=== PATIENT | female | born 1995 | race Caucasian/White ===

== ENCOUNTER 2017-09-09 19:57 | Emergency (ER) | payer BC ==
[2017-09-09] MEDS ORDERED: Famotidine TAB* 20 MG PO ONE (21:33)
[2017-09-09] MEDS ORDERED: predniSONE TAB* 20 MG PO ONE (21:33)
--- NOTE | 2017-09-09 22:40 | ED ---
Kyle De Jesus Thomas, scribed for Rai Florez MD on 09/09/17 at 2132 . 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 Patient complains of throat itching, lip swelling (mostly relieved by arrival), and dizziness. The patient has treated the allergic reaction with Benadryl 50 mg prior to arrival. Patient denies rash. - History of Current Complaint Chief Complaint: EDAllergicReaction Time Seen by Provider: 09/09/17 21:27 Hx Obtained From: Patient Onset/Duration: Started hours ago - earlier tonight, Still Present Timing: Constant Severity Currently: Mild Pain Intensity: 0 Pain Scale Used: 0-10 Numeric Location: Discrete @ - lip swelling, Aggravating Factor(s): Nothing Alleviating Factor(s): Other - Benadryl Associated Signs And Symptoms: Positive: Other: - throat itching, lip swelling, dizziness - Allergies/Home Medications Allergies/Adverse Reactions: Allergies Allergy/AdvReac Type Severity Reaction Status Date / Time Risperidone [From Risperdal] AdvReac Severe PSYCOSIS Verified 07/24/16 15:37 TREE NUTS Allergy Severe Anaphylatic Uncoded 03/27/14 16:30 Shock PMH/Surg Hx/FS Hx/Imm Hx Previously Healthy: No Endocrine/Hematology History: Denies: Hx Anticoagulant Therapy, Hx Diabetes, Hx Thyroid Disease Comment Only: 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 Cardiovascular History: Denies: Hx Hypertension, Hx Pacemaker/ICD Respiratory History: Reports: Hx Asthma - [employer]YS[employer] INH[employer]ER Denies: Hx Chronic Obstructive Pulmonary Disease (COPD) History: Denies: Hx Renal Disease Sensory History: Denies: Hx Contacts or Glasses, Hx Hearing Aid Opthamlomology History: Denies: Hx Contacts or Glasses Neurological History: Reports: Hx Headaches, Hx Migraine - STATES HEADACHE FOR 6 MONTHS Denies: Hx Dementia, Hx Seizures Psychiatric History: Reports: Hx Anxiety - ANOREXIA, Hx Eating Disorder - ANOREXIC FOR 3 YEARS, Hx Depression, Hx Suicide Attempt Denies: Hx of Violent Episodes Against Others, Hx Substance Abuse - Surgical History Hx Anesthesia Reactions: No Infectious Disease History: No Infectious Disease History: Denies: Hx Hepatitis, Hx Human Immunodeficiency Virus (HIV), Traveled Outside the [place] in Last 30 Days - Family History Known Family History: Positive: Hypertension, Diabetes - Social History Alcohol Use: None Hx Substance Use: No Substance Use Type: Reports: None Hx Tobacco Use: No Smoking Status (MU): Never Smoked Tobacco Review of Systems Negative: Fever Positive: Other - Throat itching, lip swelling Neurological: Other - Dizziness All Other Systems Reviewed And Are Negative: Yes Physical Exam - Summary Physical Exam Summary: VITAL SIGNS: Reviewed. GENERAL: Patient is a well-developed and nourished female who is lying comfortable in the stretcher. Patient is not in any acute respiratory distress. HEAD AND FACE: No signs of trauma. No ecchymosis, hematomas or skull depressions. No sinus tenderness. She does have redness over her face. EYES: PERRLA, EOMI x 2, No injected conjunctiva, no nystagmus. EARS: Hearing grossly intact. Ear canals and tympanic membranes are within normal limits. MOUTH: The patient has mild lip swelling. Her oropharynx and uvula is normal. NECK: Supple, trachea is midline, no adenopathy, no JVD, no carotid bruit, no c- spine tenderness, neck with full ROM. CHEST: Symmetric, no tenderness at palpation LUNGS: Clear to auscultation bilaterally. No wheezing or crackles. CVS: Regular rate and rhythm, S1 and S2 present, no murmurs or gallops appreciated. ABDOMEN: Soft, non-tender. No signs of distention. No rebound no guarding, and no masses palpated. Bowel sounds are normal. EXTREMITIES: FROM in all major joints, no edema, no cyanosis or clubbing. NEURO: Alert and oriented x 3. No acute neurological deficits. Speech is normal and follows commands. SKIN: Dry and warm Triage Information Reviewed: Yes Vital Signs On Initial Exam: Initial Vitals Temp Pulse Resp BP Pulse Ox 97.2 F 93 18 165/90 99 09/09/17 19:59 09/09/17 19:59 09/09/17 19:59 09/09/17 19:59 09/09/17 19:59 Vital Signs Reviewed: Yes Diagnostics - Vital Signs Vital Signs Temp Pulse Resp BP Pulse Ox 09/09/17 19:59 97.2 F 93 18 165/90 99 - Laboratory Lab Statement: Any lab studies that have been ordered have been reviewed, and results considered in the medical decision making process. 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 Patient complains of throat itching, lip swelling (mostly relieved by arrival), and dizziness. The patient has treated the allergic reaction with Benadryl 50 mg prior to arrival. Patient denies rash. In the ED course the patient was given Pepcid and prednisone. The patient was observed for an hour and a half in the ED. The patient is diagnosed with allergic reaction. The patient is instructed to follow up with primary care. The patient is prescribed prednisone. - Diagnoses Provider Diagnoses: Allergic reaction Discharge - Discharge Plan Condition: Stable Disposition: HOME Prescriptions: predniSONE TAB* [Deltasone TAB*] 40 mg PO DAILY #10 tab Patient Education Materials: General Allergic Reaction (ED) Referrals: Felisa Orlando MD [Primary Care Provider] - 3 Days Additional Instructions: Follow up with your primary care physician in three days. Return to the emergency department for any new or worsening symptoms. The documentation as recorded by the Kyle castillo Thomas accurately reflects the service I personally performed and the decisions made by , Rai Florez MD.
[2017-09-09 22:41] VITALS: BP 128/53
== END 2017-09-09 22:43 | disposition home or self-care (01) ==
LOC: ED 19:57
DX: T78.40XA Allergy, unspecified, initial encounter (principal); J45.909 Unspecified asthma, uncomplicated; F41.9 Anxiety disorder, unspecified
CPT/HCPCS: 99282; A9270-GY; J7512

== ENCOUNTER 2019-09-12 13:27 | Emergency (ER) | payer BC ==
[2019-09-12 16:18] LABS: ABS Basophils 0.1 10^3/ul (0-0.2); ABS Eosinophils 0.4 10^3/ul (0-0.6); ABS Lymphocytes 3.3 10^3/ul (1.0-4.8); ABS Monocytes 0.7 10^3/ul (0-0.8); ABS Neutrophils 8.2 10^3/ul (1.5-7.7); Eosinophil % 3.5 %; Hematocrit 41 % (35-47); Hemoglobin 13.8 g/dL (12.0-16.0); Lymphocyte % 26.2 %; Mean Corpuscular HGB Conc 34 g/dL (31-36); Mean Corpuscular Hemoglobin 33 pg (27-31); Mean Corpuscular Volume 97 fL (80-97); Mean Platelet Volume 8.3 fL (7.4-10.4); Nucleated Red Blood Cells % 0.1; Platelet Count 382 10^3/uL (150-450); Red Blood Count 4.22 10^6 /uL (3.70-4.87); Red Cell Distribution Width 12 % (10-15); White Blood Count 12.7 10^3/uL (3.5-10.8)
--- NOTE | 2019-09-12 16:25 | ED ---
Psychiatric Complaint - HPI Summary HPI Summary: This patient is a 24 year old female presenting to [facility] with a chief complaint of SI. The patient states she has been struggling for the last couple of weeks and has had thoughts since 2 days ago. She states she had a plan and wanted to act on it. She states she has a prior attempt to overdose on Tylenol. She has prior admission for psychiatric problems, but not for the overdose. She currently takes [place] and has been taking it as prescribed. - History Of Current Complaint Chief Complaint: EDSuicidal Time Seen by Provider: 09/12/19 15:35 Hx Obtained From: Patient Onset/Duration: Lasting Days Character: Depressed Aggravating Factor(s): Recent Stress - Allergies/Home Medications Allergies/Adverse Reactions: Allergies Allergy/AdvReac Type Severity Reaction Status Date / Time Risperidone AdvReac Severe PSYCOSIS Verified 09/12/19 13:33 [From Risperdal] TREE NUTS Allergy Severe Anaphylatic Uncoded 09/12/19 13:33 Shock Home Medications: Home Medications [place] Carbonate TAB* 300 mg PO BEDTIME 09/12/19 [History Confirmed 09/12/19] [place] Carbonate TAB* 600 mg PO BEDTIME 09/12/19 [History Confirmed 09/12/19] Methylphenidate HCl [Methylphenidate ER] 27 mg PO QAM 09/12/19 [History Confirmed 09/12/19] cloNIDine TAB* [Catapres 0.1 MG TAB*] 0.2 mg PO DAILY 09/12/19 [History Confirmed 09/12/19] clonazePAM TAB(*) [KlonoPIN TAB(*)] 0.5 mg PO TID PRN 09/12/19 [History Confirmed 09/12/19] l-Norgest/E.estradiol-E.estrad [Simpesse 0.15-0.03-0.01 mg Tab] 1 tab PO DAILY 09/12/19 [History Confirmed 09/12/19] metFORMIN* [Glucophage 500 MG TAB *] 250 mg PO DAILY 09/12/19 [History Confirmed 09/12/19] PMH/Surg Hx/FS Hx/Imm Hx Endocrine/Hematology History: Denies: Hx Anticoagulant Therapy, Hx Diabetes, Hx Thyroid Disease Comment Only: 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 Cardiovascular History: Denies: Hx Hypertension, Hx Pacemaker/ICD Respiratory History: Reports: Hx Asthma - [employer] INHALLER Denies: Hx Chronic Obstructive Pulmonary Disease (COPD) History: Denies: Hx Renal Disease Sensory History: Denies: Hx Contacts or Glasses, Hx Hearing Aid Opthamlomology History: Denies: Hx Contacts or Glasses Neurological History: Reports: Hx Headaches, Hx Migraine - STATES HEADACHE FOR 6 MONTHS Denies: Hx Dementia, Hx Seizures Psychiatric History: Reports: Hx Anxiety - ANOREXIA, Hx Eating Disorder - ANOREXIC FOR 3 YEARS, Hx Depression, Hx Suicide Attempt Denies: Hx of Violent Episodes Against Others, Hx Substance Abuse - Surgical History Hx Anesthesia Reactions: No Infectious Disease History: No Infectious Disease History: Denies: Hx Hepatitis, Hx Human Immunodeficiency Virus (HIV), Traveled Outside the [place] in Last 30 Days - Family History Known Family History: Positive: Hypertension, Diabetes - Social History Alcohol Use: None Hx Substance Use: No Substance Use Type: Reports: None Hx Tobacco Use: No Smoking Status (MU): Never Smoked Tobacco Review of Systems Negative: Fever, Chills Negative: Erythema Negative: Sore Throat Negative: Chest Pain Negative: Shortness Of Breath, Cough Negative: Abdominal Pain, Vomiting, Nausea Negative: dysuria, hematuria Negative: Myalgia Negative: Rash Neurological: Other - Neg: Dizziness Positive: Depressed - SI All Other Systems Reviewed And Are Negative: No Physical Exam Vital Signs On Initial Exam: Initial Vitals Temp Pulse Resp BP Pulse Ox 97.1 F 75 16 150/73 97 09/12/19 13:29 09/12/19 13:29 09/12/19 13:29 09/12/19 13:29 09/12/19 13:29 Procedures - Sedation Patient Received Moderate/Deep Sedation with Procedure: No Diagnostics - Vital Signs Vital Signs Temp Pulse Resp BP Pulse Ox 09/12/19 13:29 97.1 F 75 16 150/73 97 - Laboratory Lab Results: Lab Results 09/12/19 Range/Units 15:47 WBC 12.7 H (3.5-10.8) 10^3/uL RBC 4.22 (3.70-4.87) 10^6 /uL Hgb 13.8 (12.0-16.0) g/dL Hct 41 (35-47) % MCV 97 (80-97) fL MCH 33 H (27-31) pg MCHC 34 (31-36) g/dL RDW 12 (10-15) % Plt Count 382 (150-450) 10^3/uL MPV 8.3 (7.4-10.4) fL Neut % (Auto) 64.5 % Lymph % (Auto) 26.2 % [place] % (Auto) 5.3 % Eos % (Auto) 3.5 % Baso % (Auto) 0.5 % Absolute Neuts (auto) 8.2 H (1.5-7.7) 10^3/ul Absolute Lymphs (auto) 3.3 (1.0-4.8) 10^3/ul Absolute Monos (auto) 0.7 (0-0.8) 10^3/ul Absolute Eos (auto) 0.4 (0-0.6) 10^3/ul Absolute Basos (auto) 0.1 (0-0.2) 10^3/ul Absolute Nucleated RBC 0.0 10^3/ul Nucleated RBC % 0.1 Result Diagrams: 09/12/19 15:47 09/12/19 15:47 Lab Statement: Any lab studies that have been ordered have been reviewed, and results considered in the medical decision making process. Course/Dx - Course Course Of Treatment: This patient is a 24 year old female presenting to [facility] with a chief complaint of SI. Patient will be signed out to Dr. Bynum pending E at shift change 1900. - Differential Dx/Clinical Impression Provider Diagnosis: Suicidal ideation Discharge ED - Sign-Out/Discharge Documenting (check all that apply): Sign-Out Patient Signing out patient TO: Parmjit Bynum - At shift change 1900 pending E. - Discharge Plan Referrals: Alexey Naik MD [Primary Care Provider] - - Attestation Statements Document Initiated by Scribe: Yes Documenting Scribe: Lobito Nicole Provider For Whom Robertibe is Documenting (Include Credential): Omi Marshall MD Scribe Attestation: ILobito, scribed for Omi Marshall MD on 09/12/19 at 1918. Status of Scribe Document: Ready
[2019-09-12 16:30] LABS: Urine Appearance Cloudy; Urine Bilirubin Negative (Negative); Urine Blood Negative (Negative); Urine Color Amber; Urine Glucose Negative (Negative); Urine Ketones Negative (Negative); Urine Nitrite Negative (Negative); Urine Protein Negative (Negative); Urine Specific Gravity 1.015 (1.010-1.030); Urine Urobilinogen Negative (Negative)
[2019-09-12 17:05] LABS: TSH (Thyroid Stimulating Horm) 1.83 mcIU/mL (0.34-5.60)
[2019-09-12 17:20] LABS: ALT 12 U/L (7-52); AST 17 U/L (13-39); Albumin 4.2 g/dL (3.2-5.2); Albumin/Globulin Ratio 1.6 (1-3); Alkaline Phosphatase 58 U/L (34-104); Anion Gap 9 mmol/L (2-11); BUN/Creatinine Ratio 15.8 (8-20); Blood Urea Nitrogen 12 mg/dL (6-24); CO2 Carbon Dioxide 22 mmol/L (22-32); Calcium 9.9 mg/dL (8.6-10.3); Chloride 109 mmol/L (101-111); EGFR African American 115.1 (>60); EGFR Non-African American 95.2 (>60); Globulin 2.7 g/dL (2-4); Glucose 88 mg/dL (70-100); Sodium 140 mmol/L (135-145); Total Protein 6.9 g/dL (6.4-8.9)
[2019-09-12 17:24] LABS: Urine Benzodiazepine Screen None Detected (None Detect); Urine Opiates Screen None Detected (None Detect)
[2019-09-12 17:25] LABS: Acetaminophen < 15 mcg/mL; Salicylate < 2.50 mg/dL (<30)
[2019-09-12 17:41] LABS: Alcohol < 10 mg/dL (<10); Lithium 0.44 mmol/L (0.6-1.2)
--- NOTE | 2019-09-12 19:11 | ED ---
Progress - Progress Note Progress Note: Patient is received as a sign out from Dr. Marshall to Dr. Bynum at 1899 shift change pending MHE of this mental health patient. 2049 - Mental health etcher photoengraving Mark reports that the patient's case was reviewed by Dr. Mclaughlin, patient discharged to home with Dx of depressive disorder. Course/Dx - Course Course Of Treatment: Patient is received as a sign out from Dr. Marshall to Dr. Bynum at 189909/12/19 shift change pending MHE of this mental health patient. 2049 - Mental health etcher photoengraving Mark reports that the patient's case was reviewed by Dr. Mclaughlin, patient discharged to home with Dx of depressive mood disorder. - Diagnoses Provider Diagnoses: Depressive disorder - Provider Notifications Discussed Care Of Patient With: Christian Mclaughlin Time Discussed With Above Provider: 20:50 Instructed by Provider To: Other - 2049 - Mental health etcher photoengraving Mark reports that the patient's case was reviewed by Dr. Mclaughlin, patient discharged to home with Dx of depressive disorder. Discharge ED - Sign-Out/Discharge Documenting (check all that apply): Patient Departure - discharge, Receiving Sign-Out Receiving patient FROM: Omi Marshall - Discharge Plan Condition: Stable Disposition: HOME Patient Education Materials: Depression (ED) Referrals: Alexey Naik MD [Primary Care Provider] - Additional Instructions: Per completion of a mental health evaluation, you are cleared for release and do not require inpatient psychiatric hospitalization at this time. Please go to nearest emergency room or call 911 if safety concerns arise or condition worsens. Important Phone Numbers: [facility] ph:[phone] Suicide Prevention and Crisis Services ph:[phone] National Suicide Prevention Lifeline ph:[phone] [place] (2505) [facility] ph:[phone] Alcoholics Anonymous ph: [facility] ph:[phone] [place] [employer] ph:[phone] Recommendation: Follow up with therapist and NPP as scheduled. Return to emergency department if symptoms increase or otherwise needed. - Billing Disposition and Condition Condition: STABLE Disposition: Home - Attestation Statements Document Initiated by Scribe: Yes Documenting Scribe: MIKAYLA KOLENDA Provider For Whom Scribe is Documenting (Include Credential): BRYCE BYNUM MD Scribe Attestation: I, MIKAYLA GIORDANO, scribed for BRYCE BYNUM MD on 09/13/19 at 0420. Scribe Documentation Reviewed: Yes Provider Attestation: The documentation as recorded by the scribe, MIKAYLA GIORDANO accurately reflects the service I personally performed and the decisions made by me, BRYCE BYNUM MD Status of Scribe Document: Viewed
[2019-09-12] MEDS ORDERED: clonazePAM TAB(*) 0.5 MG PO ONE (20:29)
[2019-09-12 20:57] VITALS: BP 124/68
== END 2019-09-12 20:55 | disposition home or self-care (01) ==
LOC: ED 13:27
DX: R45.851 Suicidal ideations (principal); F32.9 Major depressive disorder, single episode, unspecified; F41.9 Anxiety disorder, unspecified; R63.0 Anorexia; Z79.84 Long term (current) use of oral hypoglycemic drugs; Z79.899 Other long term (current) drug therapy; Z88.8 Allergy status to other drugs, medicaments and biological substances; J45.909 Unspecified asthma, uncomplicated
CPT/HCPCS: 36415; 80053; 80178; 80307; 80320; 80329; 81003; 84443; 85025; 99285; A9270-GY; G0480

== ENCOUNTER 2020-06-12 15:56 | Inpatient (IN) ==
[2020-06-12] MEDS ORDERED: NS 0.9% 1000 ml BAG 1,000 ML IV ONE (16:04)
[2020-06-12 16:28] LABS: ABS Eosinophils 0.4 10^3/ul (0-0.6); ABS Lymphocytes 3.5 10^3/ul (1.0-4.8); ABS Monocytes 0.6 10^3/ul (0-0.8); ABS Neutrophils 5.4 10^3/ul (1.5-7.7); Eosinophil % 4.1 %; Hematocrit 41 % (35-47); Hemoglobin 13.8 g/dL (12.0-16.0); Lymphocyte % 35.4 %; Mean Corpuscular HGB Conc 34 g/dL (31-36); Mean Corpuscular Hemoglobin 32 pg (27-31); Mean Corpuscular Volume 96 fL (80-97); Mean Platelet Volume 8.7 fL (7.4-10.4); Nucleated Red Blood Cells % 0.1; Platelet Count 293 10^3/uL (150-450); Red Blood Count 4.26 10^6 /uL (3.70-4.87); Red Cell Distribution Width 13 % (10-15)
[2020-06-12 16:32] LABS: INR 1.08 (0.82-1.09)
[2020-06-12 16:35] LABS: Albumin 3.9 g/dL (3.2-5.2); CO2 Carbon Dioxide 20 mmol/L (22-32); Calcium 9.7 mg/dL (8.6-10.3); Chloride 109 mmol/L (101-111); Sodium 138 mmol/L (135-145)
[2020-06-12 16:41] LABS: ALT 54 U/L (7-52); Albumin/Globulin Ratio 1.6 (1-3); Alkaline Phosphatase 62 U/L (34-104); BUN/Creatinine Ratio 8.2 (8-20); Blood Urea Nitrogen 6 mg/dL (6-24); EGFR African American 120.6 (>60); EGFR Non-African American 99.7 (>60); Globulin 2.4 g/dL (2-4); Glucose 72 mg/dL (70-100); Total Protein 6.3 g/dL (6.4-8.9)
[2020-06-12] MEDS ORDERED: LORazepam 2 mg VIAL 1 ml IV PUSH ONE (17:32)
[2020-06-12] MEDS ORDERED: Lorazepam PYXIS KEY PRN (17:32)
[2020-06-12 17:41] LABS: Anion Gap 9 mmol/L (2-11)
[2020-06-12 17:44] LABS: Acetaminophen < 15 mcg/mL; Alcohol, S < 10 mg/dL (<10); Salicylate < 2.50 mg/dL (<30)
[2020-06-12 19:41] LABS: Potassium Redraw 4.3 mmol/L (3.5-5.0)
[2020-06-12 19:56] LABS: Urine Appearance Clear; Urine Bilirubin Negative (Negative); Urine Blood Negative (Negative); Urine Color Straw; Urine Glucose Negative (Negative); Urine Ketones 1+ (Negative); Urine Nitrite Negative (Negative); Urine Protein Negative (Negative); Urine Specific Gravity 1.008 (1.010-1.030); Urine Urobilinogen Negative (Negative)
[2020-06-12 20:12] LABS: Urine Benzodiazepine Screen None Detected (None Detect); Urine Cannabinoids Screen None Detected (None Detect); Urine Opiates Screen None Detected (None Detect)
[2020-06-13 01:48] LABS: Lithium < 0.10 mmol/L (0.6-1.2)
[2020-06-13] MEDS ORDERED: Al Hydrox/Mg Hydrox/Simet LIQ 30 ML UDC PO PRN (02:28)
[2020-06-13] MEDS: Vitamin THERAPEUTIC TAB PO SCH (10:18)
[2020-06-13] MEDS: ETHINYL ESTRADIOL PO SCH (20:00)
[2020-06-13] MEDS: LEVONORGESTREL PO SCH (20:00)
[2020-06-14] MEDS: Vitamin THERAPEUTIC TAB PO SCH (08:30)
[2020-06-14 08:35] LABS: HDL Cholesterol 54.8 mg/dL
[2020-06-14] MEDS ORDERED: NORGEST PO SCH (09:00)
[2020-06-14] MEDS ORDERED: E ESTRADIOL E ESTRAD PO SCH (09:00)
[2020-06-14] MEDS ORDERED: [UNRECOGNIZED DRUG - OTHER] PO SCH (09:00)
[2020-06-14] MEDS: ETHINYL ESTRADIOL PO SCH (21:03)
[2020-06-14] MEDS: LEVONORGESTREL PO SCH (21:03)
[2020-06-15] MEDS: Vitamin THERAPEUTIC TAB PO SCH (07:30)
[2020-06-15] MEDS: LEVONORGESTREL PO SCH (20:37)
[2020-06-15] MEDS: ETHINYL ESTRADIOL PO SCH (20:37)
[2020-06-16] MEDS: Vitamin THERAPEUTIC TAB PO SCH (09:41)
[2020-06-16] MEDS: ETHINYL ESTRADIOL PO SCH (21:14)
[2020-06-16] MEDS: LEVONORGESTREL PO SCH (21:14)
[2020-06-17] MEDS: Vitamin THERAPEUTIC TAB PO SCH (08:14)
[2020-06-17 09:30] VITALS: BP 146/88
== END 2020-06-17 12:00 | disposition home or self-care (01) | DRG 751 ==
LOC: ED 15:56 → BSU 23:40
PROVIDERS: ADMIT Psychiatry & Neurology Psychiatry; ATTEND Psychiatry & Neurology Psychiatry

== ENCOUNTER 2020-11-28 13:49 | Inpatient (IN) ==
[2020-11-28 16:10] LABS: ABS Eosinophils 0.2 10^3/ul (0-0.6); ABS Lymphocytes 2.6 10^3/ul (1.0-4.8); ABS Monocytes 0.5 10^3/ul (0-0.8); ABS Neutrophils 8.4 10^3/ul (1.5-7.7); Eosinophil % 1.6 %; Hematocrit 45 % (35-47); Hemoglobin 14.9 g/dL (12.0-16.0); Lymphocyte % 22.2 %; Mean Corpuscular HGB Conc 33 g/dL (31-36); Mean Corpuscular Hemoglobin 32 pg (27-31); Mean Corpuscular Volume 96 fL (80-97); Mean Platelet Volume 8.3 fL (7.4-10.4); Platelet Count 377 10^3/uL (150-450); Red Blood Count 4.72 10^6 /uL (3.70-4.87); Red Cell Distribution Width 12 % (10-15); White Blood Count 11.7 10^3/uL (3.5-10.8)
[2020-11-28 16:26] LABS: ALT 39 U/L (7-52); AST 32 U/L (13-39); Albumin 4.2 g/dL (3.2-5.2); Albumin/Globulin Ratio 1.4 (1-3); Alkaline Phosphatase 77 U/L (34-104); Anion Gap 9 mmol/L (2-11); BUN/Creatinine Ratio 10.3 (8-20); Blood Urea Nitrogen 9 mg/dL (6-24); CO2 Carbon Dioxide 22 mmol/L (22-32); Calcium 9.7 mg/dL (8.6-10.3); Chloride 105 mmol/L (101-111); EGFR African American 97.6 (>60); EGFR Non-African American 80.7 (>60); Glucose 78 mg/dL (70-100); Potassium 4.6 mmol/L (3.5-5.0); Sodium 136 mmol/L (135-145); Total Protein 7.2 g/dL (6.4-8.9)
[2020-11-28 16:33] LABS: HCG Pregnancy < 0.60 mIU/mL
[2020-11-28 16:56] LABS: Urine Appearance Cloudy; Urine Bilirubin Negative (Negative); Urine Blood Negative (Negative); Urine Color Yellow; Urine Glucose Negative (Negative); Urine Ketones 1+ (Negative); Urine Nitrite Negative (Negative); Urine Protein Negative (Negative); Urine Urobilinogen Negative (Negative)
[2020-11-28 17:01] LABS: Alcohol, S < 10 mg/dL (<10); Salicylate < 2.50 mg/dL (<30)
[2020-11-28 17:05] LABS: Urine Bacteria Absent (Absent); Urine Red Blood Cell Trace(0-2/hpf) (Absent); Urine Squamous Epithelial Cell Present (Absent); Urine White Blood Cell Trace(0-5/hpf) (Absent)
[2020-11-28 17:11] LABS: Urine Benzodiazepine Screen Presumptive Positive (None Detect); Urine Cannabinoids Screen None Detected (None Detect); Urine Opiates Screen None Detected (None Detect)
[2020-11-28 17:16] LABS: TSH Ultra Thyroid Stim Horm 1.34 mcIU/mL (0.34-5.60)
[2020-11-28] MEDS ORDERED: Al Hydrox/Mg Hydrox/Simet LIQ 30 ML UDC PO PRN (17:16)
[2020-11-28 17:33] LABS: Acetaminophen < 15 mcg/mL
[2020-11-28] MEDS ORDERED: Albuterol HFA INHALER 8 gm MDI INH PRN (18:36)
[2020-11-28] MEDS: JAIMIESS PO SCH (20:24)
[2020-11-29] MEDS: JAIMIESS PO SCH (20:06)
[2020-11-30 07:37] LABS: HDL Cholesterol 46.9 mg/dL
[2020-11-30] MEDS: JAIMIESS PO SCH (20:08)
[2020-12-01 08:44] VITALS: BP 133/80
== END 2020-12-01 14:05 | disposition home or self-care (01) | DRG 751 ==
LOC: ED 13:49 → BSU 16:30
PROVIDERS: ADMIT Psychiatry & Neurology Psychiatry; ATTEND Psychiatry & Neurology Psychiatry

== ENCOUNTER 2021-08-26 12:53 | Inpatient (IN) ==
[2021-08-26 13:49] LABS: Urine Appearance Clear; Urine Bilirubin Negative (Negative); Urine Blood Negative (Negative); Urine Color Colorless; Urine Glucose Negative (Negative); Urine Ketones Negative (Negative); Urine Nitrite Negative (Negative); Urine Protein Negative (Negative); Urine Specific Gravity 1.002 (1.002-1.030); Urine Urobilinogen Negative (Negative)
[2021-08-26 14:28] LABS: Urine Benzodiazepine Screen Presumptive Positive (None Detect); Urine Cannabinoids Screen None Detected (None Detect); Urine Opiates Screen None Detected (None Detect)
[2021-08-26] MEDS ORDERED: Al Hydrox/Mg Hydrox/Simet LIQ 30 ML UDC PO PRN (14:48)
[2021-08-26] MEDS ORDERED: Albuterol HFA INHALER 8 gm MDI INH PRN (14:52)
[2021-08-26 14:53] LABS: Hematocrit 43 % (35-47); Hemoglobin 14.6 g/dL (12.0-16.0); Mean Corpuscular HGB Conc 34 g/dL (31-36); Mean Corpuscular Hemoglobin 33 pg (27-31); Mean Corpuscular Volume 97 fL (80-97); Red Blood Count 4.48 10^6 /uL (3.70-4.87); Red Cell Distribution Width 12 % (10-15); White Blood Count 9.3 10^3/uL (3.5-10.8)
[2021-08-26 15:01] LABS: Rapid COVID-19 Molecular Undetected (Undetected)
[2021-08-26 15:02] LABS: ALT 18 U/L (7-52); Albumin 4.6 g/dL (3.2-5.2); Albumin/Globulin Ratio 1.8 (1-3); Alkaline Phosphatase 54 U/L (35-149); Blood Urea Nitrogen 11 mg/dL (6-24); CO2 Carbon Dioxide 21 mmol/L (22-32); Calcium 9.9 mg/dL (8.6-10.3); Chloride 107 mmol/L (101-111); Globulin 2.6 g/dL (2-4); Glucose 81 mg/dL (70-100); Sodium 137 mmol/L (135-145); Total Protein 7.2 g/dL (6.4-8.9); eGFR CKD-EPI 109.4 (>60)
[2021-08-26 15:05] LABS: HCG Pregnancy < 0.60 mIU/mL
[2021-08-26 15:12] LABS: AST 23 U/L (13-39); Anion Gap 9 mmol/L (2-11); Potassium 4.1 mmol/L (3.5-5.0)
[2021-08-26 15:56] LABS: ABS Basophils 0.1 10^3/ul (0-0.2); ABS Eosinophils 0.3 10^3/ul (0-0.6); ABS Lymphocytes 2.6 10^3/ul (1.0-4.8); ABS Monocytes 0.5 10^3/ul (0-0.8); ABS Neutrophils 5.9 10^3/ul (1.5-7.7); Eosinophil % 3.1 %; Platelet Count Platelets clumped. 10^3/uL (150-450)
[2021-08-26 16:40] LABS: Alcohol, S < 13 mg/dL (<13); Lithium 0.21 mmol/L (0.6-1.2); Salicylate < 2.50 mg/dL (<30)
[2021-08-26 16:41] LABS: Acetaminophen < 15 mcg/mL
[2021-08-26 16:54] LABS: TSH Ultra Thyroid Stim Horm 1.83 mcIU/mL (0.34-5.60)
[2021-08-26] MEDS: LEVONORGESTREL PO SCH (21:14)
[2021-08-26] MEDS: ETHINYL ESTRADIOL PO SCH (21:14)
[2021-08-26] MEDS: [UNRECOGNIZED DRUG - OTHER] PO SCH (21:14)
[2021-08-27] MEDS: Vitamin THERAPEUTIC TAB PO SCH (08:54)
[2021-08-27] MEDS: ETHINYL ESTRADIOL PO SCH (19:07)
[2021-08-27] MEDS: LEVONORGESTREL PO SCH (19:07)
[2021-08-27] MEDS: [UNRECOGNIZED DRUG - OTHER] PO SCH (19:07)
[2021-08-28] MEDS: Vitamin THERAPEUTIC TAB PO SCH (08:36)
[2021-08-28] MEDS: LEVONORGESTREL PO SCH (19:53)
[2021-08-28] MEDS: [UNRECOGNIZED DRUG - OTHER] PO SCH (19:53)
[2021-08-28] MEDS: ETHINYL ESTRADIOL PO SCH (19:53)
[2021-08-29 07:39] VITALS: BP 110/68
[2021-08-29] MEDS: Vitamin THERAPEUTIC TAB PO SCH (08:25)
[2021-08-29 08:31] LABS: HDL Cholesterol 59.7 mg/dL
== END 2021-08-29 14:49 | disposition home or self-care (01) | DRG 751 ==
LOC: ED 12:53 → EDHOLD 14:52 → BSU 17:12
PROVIDERS: ADMIT Psychiatry & Neurology Psychiatry; ATTEND Psychiatry & Neurology Psychiatry

== ENCOUNTER 2023-05-13 15:41 | Inpatient (IN) ==
[2023-05-13 16:22] LABS: ABS Basophils 0.1 10^3/uL (0.0-0.1); ABS Eosinophils 0.2 10^3/uL (0.0-0.5); ABS Lymphocytes 2.8 10^3/uL (1.0-4.8); ABS Monocytes 0.7 10^3/uL (0.0-0.9); ABS Neutrophils 6.8 10^3/uL (1.5-7.6); ABS Nucleated RBC 0.01 10^3/ul; Eosinophil % 2.4 %; Lymphocyte % 26.4 %; Mean Corpuscular Hemoglobin 32.7 pg (27-33); Mean Platelet Volume 8.6 fL (7.5-11.2); Nucleated Red Blood Cells % 0.1 /100 WBC (0.0-0.4); Platelet Count 350 10^3/uL (150-450); Red Blood Count 4.59 10^6/uL (3.63-4.92); Red Cell Distribution Width 12.7 % (12-17); White Blood Count 10.6 10^3/uL (3.8-11.8)
[2023-05-13] MEDS: NS 0.9% 1000 ml BAG 1,000 ML IV SCH ×2 (16:34→21:08)
[2023-05-13 16:35] LABS: ALT 16 U/L (7-52); Albumin 4.4 g/dL (3.2-5.2); Albumin/Globulin Ratio 1.7 (1-3); Alkaline Phosphatase 48 U/L (35-149); Blood Urea Nitrogen 11 mg/dL (6-24); CO2 Carbon Dioxide 25 mmol/L (22-32); Calcium 9.9 mg/dL (8.6-10.3); Chloride 109 mmol/L (101-111); Creatine Kinase 59 U/L (10-223); Creatinine, Serum 0.93 mg/dL (0.51-0.95); Globulin 2.6 g/dL (2-4); Glucose 78 mg/dL (70-100); Sodium 140 mmol/L (135-145); eGFR CKD-EPI 87.5 (>60)
[2023-05-13 16:40] LABS: HCG Pregnancy < 0.60 mIU/mL
[2023-05-13 16:44] LABS: Anion Gap 6 mmol/L (2-16)
[2023-05-13 17:02] LABS: Acetaminophen < 15 mcg/mL; Alcohol, S < 13 mg/dL (<13); Salicylate < 2.50 mg/dL (<30)
[2023-05-13 17:25] LABS: TSH Ultra Thyroid Stim Horm 2.88 mcIU/mL (0.34-5.60)
[2023-05-13 17:38] LABS: Calcium 9.1 mg/dL (8.6-10.3); Creatinine, Serum 0.87 mg/dL (0.51-0.95); eGFR CKD-EPI 94.8 (>60)
[2023-05-13 18:14] LABS: Potassium 3.9 mmol/L (3.5-5.0)
[2023-05-13 19:24] LABS: Creatinine, Serum 0.86 mg/dL (0.51-0.95); Potassium 3.8 mmol/L (3.5-5.0); eGFR CKD-EPI 96.1 (>60)
[2023-05-13 20:00] LABS: Lithium 1.69 mmol/L (0.6-1.2)
[2023-05-13 21:27] LABS: Creatinine, Serum 0.79 mg/dL (0.51-0.95); Potassium 3.9 mmol/L (3.5-5.0); eGFR CKD-EPI 106.4 (>60)
[2023-05-13 21:39] LABS: Lithium 1.45 mmol/L (0.6-1.2)
[2023-05-13 23:03] LABS: Urine Appearance Cloudy; Urine Bilirubin Negative (Negative); Urine Blood Negative (Negative); Urine Color Yellow; Urine Glucose Negative (Negative); Urine Ketones Negative (Negative); Urine Nitrite Negative (Negative); Urine Protein Negative (Negative); Urine Specific Gravity 1.014 (1.002-1.030); Urine Urobilinogen Negative (Negative)
[2023-05-13 23:18] LABS: Urine Benzodiazepine Screen Presumptive Positive (None Detect); Urine Cannabinoids Screen Presumptive Positive (None Detect); Urine Opiates Screen None Detected (None Detect)
[2023-05-13 23:24] LABS: Calcium 8.7 mg/dL (8.6-10.3); Creatinine, Serum 0.81 mg/dL (0.51-0.95); Potassium 4.1 mmol/L (3.5-5.0); eGFR CKD-EPI 103.2 (>60)
[2023-05-14 01:35] LABS: Calcium 8.3 mg/dL (8.6-10.3); Creatinine, Serum 0.76 mg/dL (0.51-0.95); eGFR CKD-EPI 111.5 (>60)
[2023-05-14 01:46] LABS: Potassium 4.4 mmol/L (3.5-5.0)
[2023-05-14 01:54] LABS: Lithium 1.13 mmol/L (0.6-1.2)
[2023-05-14] MEDS ORDERED: Al Hydrox/Mg Hydrox/Simet LIQ 30 ML UDC PO PRN (05:09)
[2023-05-14 08:24] LABS: ABS Basophils 0.1 10^3/uL (0.0-0.1); ABS Eosinophils 0.3 10^3/uL (0.0-0.5); ABS Monocytes 0.6 10^3/uL (0.0-0.9); ABS Neutrophils 5.8 10^3/uL (1.5-7.6); Eosinophil % 2.9 %; Hematocrit 40.1 % (35-45); Hemoglobin 13.5 g/dL (11.5-14.3); Lymphocyte % 30.4 %; Mean Corpuscular Hemoglobin 32.5 pg (27-33); Mean Corpuscular Hgb Conc 33.7 g/dL (31-36); Mean Corpuscular Volume 96.3 fL (80-97); Mean Platelet Volume 8.3 fL (7.5-11.2); Platelet Count 315 10^3/uL (150-450); Red Blood Count 4.16 10^6/uL (3.63-4.92); Red Cell Distribution Width 12.5 % (12-17); White Blood Count 9.7 10^3/uL (3.8-11.8)
[2023-05-14] MEDS: Vitamin THERAPEUTIC TAB PO SCH (08:30)
[2023-05-14] MEDS ORDERED: Albuterol HFA INHALER 8 gm MDI INH PRN (08:51)
[2023-05-14 08:59] LABS: Albumin 3.6 g/dL (3.2-5.2); Albumin/Globulin Ratio 1.4 (1-3); Creatinine, Serum 0.79 mg/dL (0.51-0.95); Globulin 2.5 g/dL (2-4); Potassium 4.1 mmol/L (3.5-5.0); Total Bilirubin 0.6 mg/dL (0.2-1.0); Total Protein 6.1 g/dL (6.4-8.9); eGFR CKD-EPI 106.4 (>60)
[2023-05-14 09:13] LABS: Lithium 0.88 mmol/L (0.6-1.2)
[2023-05-14 10:05] LABS: TSH Ultra Thyroid Stim Horm 3.67 mcIU/mL (0.34-5.60)
[2023-05-14] MEDS: E ESTRADIOL E ESTRAD PO SCH ×2 (12:49→19:59)
[2023-05-14] MEDS: NORGEST PO SCH ×2 (12:49→19:59)
[2023-05-14] MEDS ORDERED: NORGEST PO SCH (21:00)
[2023-05-14] MEDS ORDERED: E ESTRADIOL E ESTRAD PO SCH (21:00)
[2023-05-14] MEDS ORDERED: EPINEPHrine Anaphylaxis SYR CERTADOSE SYR KIT IM PRN (21:45)
[2023-05-15] MEDS: TESTOSTERONE TOPICAL SCH (07:51)
[2023-05-15] MEDS: Vitamin THERAPEUTIC TAB PO SCH (07:53)
[2023-05-15 07:58] LABS: HDL Cholesterol 53.3 mg/dL
[2023-05-15] MEDS: NORGEST PO SCH (20:10)
[2023-05-15] MEDS: E ESTRADIOL E ESTRAD PO SCH (20:10)
[2023-05-16] MEDS: TESTOSTERONE TOPICAL SCH (08:09)
[2023-05-16] MEDS: Vitamin THERAPEUTIC TAB PO SCH (08:09)
[2023-05-16] MEDS: E ESTRADIOL E ESTRAD PO SCH (20:30)
[2023-05-16] MEDS: NORGEST PO SCH (20:30)
[2023-05-17] MEDS: Vitamin THERAPEUTIC TAB PO SCH (08:01)
[2023-05-17] MEDS: TESTOSTERONE TOPICAL SCH (08:01)
[2023-05-17] MEDS: NS 0.9% 1000 ml BAG 1,000 ML IV SCH (12:20)
[2023-05-17] MEDS: NORGEST PO SCH (19:55)
[2023-05-17] MEDS: E ESTRADIOL E ESTRAD PO SCH (19:55)
[2023-05-18] MEDS: Vitamin THERAPEUTIC TAB PO SCH (07:50)
[2023-05-18] MEDS: TESTOSTERONE TOPICAL SCH (07:51)
[2023-05-18] MEDS ORDERED: DULoxetine DR 20 mg CAP PO SCH (09:00)
[2023-05-18] MEDS: E ESTRADIOL E ESTRAD PO SCH ×2 (20:03)
[2023-05-18] MEDS: NORGEST PO SCH ×2 (20:03)
[2023-05-19] MEDS: Vitamin THERAPEUTIC TAB PO SCH (07:36)
[2023-05-19] MEDS: TESTOSTERONE TOPICAL SCH (07:38)
[2023-05-19] MEDS: E ESTRADIOL E ESTRAD PO SCH (20:43)
[2023-05-19] MEDS: NORGEST PO SCH (20:43)
[2023-05-20] MEDS: Vitamin THERAPEUTIC TAB PO SCH (07:43)
[2023-05-20] MEDS: TESTOSTERONE TOPICAL SCH (07:43)
[2023-05-20] MEDS: NORGEST PO SCH (20:27)
[2023-05-20] MEDS: E ESTRADIOL E ESTRAD PO SCH (20:27)
[2023-05-21] MEDS: TESTOSTERONE TOPICAL SCH (07:34)
[2023-05-21] MEDS: Vitamin THERAPEUTIC TAB PO SCH (07:35)
[2023-05-21 11:06] VITALS: BP 115/64
== END 2023-05-21 12:22 | disposition home or self-care (01) | DRG 751 ==
LOC: ED 15:41 → EDHOLD 05-14 05:09 → BSU 05-14 05:45
PROVIDERS: ADMIT Psychiatry & Neurology Psychiatry; ATTEND Psychiatry & Neurology Psychiatry